=== PATIENT | male | born 1925 | race Caucasian/White ===

== ENCOUNTER 2016-06-04 14:50 | Outpatient (CLI) | payer MEDICARE, BC | END 2016-06-04 14:51 | disposition home or self-care (01) | DX: Z51.5 Encounter for palliative care (principal); J84.10 Pulmonary fibrosis, unspecified; F42.9 Obsessive-compulsive disorder, unspecified; D64.9 Anemia, unspecified; D47.2 Monoclonal gammopathy; I48.91 Unspecified atrial fibrillation; G47.00 Insomnia, unspecified; R06.00 Dyspnea, unspecified; K59.00 Constipation, unspecified; S50.11XA Contusion of right forearm, initial encounter; F41.9 Anxiety disorder, unspecified ==

== ENCOUNTER 2016-06-26 07:29 | Outpatient (CLI) | payer MEDICARE, BC ==
[2016-06-26] MEDS ORDERED: oxyCODONE 5 MG TABLET PO PRN (13:47)
[2016-06-26] MEDS ORDERED: SODIUM CHLORIDE FLUSH 0.9% 10 ML SYRINGE IVP PRN (13:47)
[2016-06-26] MEDS ORDERED: ONDANSETRON ODT 4 MG TABLET TL PRN (13:47)
[2016-06-26] MEDS ORDERED: HYDROmorphone 1 MG/ML SYRINGE IVP PRN (13:47)
[2016-06-26] MEDS ORDERED: ACETAMINOPHEN 325 MG TABLET PO PRN (13:47)
[2016-06-26] MEDS ORDERED: SODIUM CHLORIDE 0.9% 1,000 ML IV SCH (14:00)
[2016-06-26] MEDS ORDERED: SODIUM CHLORIDE FLUSH 0.9% 10 ML SYRINGE IVP SCH (14:00)
[2016-06-26] MEDS ORDERED: diazePAM INJ 5 MG/ML SYRINGE IVP PRN (14:06)
[2016-06-26] MEDS ORDERED: FAMOTIDINE 20 MG TABLET PO SCH (21:00)
[2016-06-27] MEDS ORDERED: ENOXAPARIN 40 MG/0.4 ML SYRINGE SUBQ SCH (09:00)
[2016-06-27] MEDS ORDERED: POLYETHYLENE GLYCOL 3350 17 GM PACKET PO SCH (09:00)
== END 2016-06-26 07:30 | disposition critical access hospital (66) ==
DX: M54.5 Low back pain (principal); W10.8XXA Fall (on) (from) other stairs and steps, initial encounter; Y92.018 Other place in single-family (private) house as the place of occurrence of the external cause
CPT/HCPCS: A0425; A0427

== ENCOUNTER 2016-06-26 07:55 | Inpatient (IN) | payer MEDICARE, BC ==
[2016-06-26] MEDS ORDERED: MORPHINE 2 MG/ML SYRINGE IVP STA ×2 (08:29→10:55)
[2016-06-26] MEDS ORDERED: SODIUM CHLORIDE 0.9% 1,000 ML IV ONE (08:30)
[2016-06-26] MEDS ORDERED: MORPHINE 10 MG/ML VIAL ONE (08:32)
[2016-06-26] MEDS ORDERED: MORPHINE 2 MG/ML SYRINGE ONE (11:04)
[2016-06-26] MEDS ORDERED: ALBUTEROL NEB 2.5 MG/3 ML INH STA (11:41)
[2016-06-26] MEDS ORDERED: diazePAM INJ 5 MG/ML SYRINGE IVP STA (12:54)
[2016-06-26] MEDS ORDERED: diazePAM INJ 5 MG/ML SYRINGE ONE (12:54)
[2016-06-26] MEDS ORDERED: ACETAMINOPHEN 1,000 MG/100 ML 100 ML IV STA (12:54)
[2016-06-26] MEDS ORDERED: KETOROLAC 15 MG/ML VIAL IVP STA (12:54)
[2016-06-26] MEDS ORDERED: KETOROLAC 30 MG/ML VIAL ONE (13:01)
[2016-06-26] MEDS ORDERED: ACETAMINOPHEN 1,000 MG/100 ML 100 ML IV ONE (13:02)
[2016-06-26] MEDS ORDERED: oxyCODONE 5 MG TABLET PO PRN (14:12)
[2016-06-26] MEDS ORDERED: ONDANSETRON ODT 4 MG TABLET TL PRN ×2 (14:12→15:19)
[2016-06-26] MEDS ORDERED: HYDROmorphone 1 MG/ML SYRINGE IVP PRN (14:12)
[2016-06-26] MEDS ORDERED: SODIUM CHLORIDE FLUSH 0.9% 10 ML SYRINGE IVP PRN (14:12)
[2016-06-26] MEDS ORDERED: ACETAMINOPHEN 325 MG TABLET PO PRN ×2 (14:12→15:19)
[2016-06-26] MEDS ORDERED: SODIUM CHLORIDE 0.9% 1,000 ML IV SCH (15:00)
[2016-06-26] MEDS ORDERED: ALBUTEROL NEB 2.5 MG/3 ML INH PRN (15:36)
[2016-06-26] MEDS ORDERED: MORPHINE SOL 10 MG/0.5 ML SYRINGE PO PRN (15:36)
[2016-06-26] MEDS: SODIUM CHLORIDE 0.9% 1,000 ML IV SCH (16:56)
[2016-06-26] MEDS: SODIUM CHLORIDE FLUSH 0.9% 10 ML SYRINGE IVP PRN ×2 (16:57→22:45)
[2016-06-26] MEDS: oxyCODONE 5 MG TABLET PO PRN (20:23)
[2016-06-26] MEDS: MIRTAZAPINE 15 MG TABLET PO SCH (20:24)
[2016-06-26] MEDS: TAMSULOSIN 0.4 MG CAPSULE PO SCH (20:25)
[2016-06-26] MEDS ORDERED: SODIUM CHLORIDE FLUSH 0.9% 10 ML SYRINGE IVP SCH (22:00)
[2016-06-26] MEDS: HYDROmorphone 1 MG/ML SYRINGE IVP PRN (22:44)
[2016-06-26] MEDS: SODIUM CHLORIDE FLUSH 0.9% 10 ML SYRINGE IVP SCH (22:45)
[2016-06-27] MEDS: oxyCODONE 5 MG TABLET PO PRN (00:03)
[2016-06-27] MEDS: HYDROmorphone 1 MG/ML SYRINGE IVP PRN ×2 (01:50→04:53)
[2016-06-27] MEDS: SODIUM CHLORIDE 0.9% 1,000 ML IV SCH ×2 (01:56→11:45)
[2016-06-27] MEDS: SODIUM CHLORIDE FLUSH 0.9% 10 ML SYRINGE IVP SCH ×3 (05:58→20:57)
[2016-06-27] MEDS ORDERED: IPRATROPIUM/ALBUTEROL 3 ML NEB INH PRN (08:43)
[2016-06-27] MEDS ORDERED: ENOXAPARIN 40 MG/0.4 ML SYRINGE SUBQ SCH (09:00)
[2016-06-27] MEDS ORDERED: FAMOTIDINE 20 MG TABLET PO SCH (09:00)
[2016-06-27] MEDS ORDERED: POLYETHYLENE GLYCOL 3350 17 GM PACKET PO SCH (09:00)
[2016-06-27] MEDS: ENOXAPARIN 40 MG/0.4 ML SYRINGE SUBQ SCH (09:10)
[2016-06-27] MEDS: ASPIRIN CHEW 81 MG TABLET PO SCH (11:04)
[2016-06-27] MEDS: MULTIVITAMIN W/MINERALS TABLET PO SCH (11:04)
[2016-06-27] MEDS: CALCIUM CARBONATE CHEW 500 MG TABLET PO SCH (11:05)
[2016-06-27] MEDS: CHOLECALCIFEROL 400 UNIT TABLET PO SCH (11:05)
[2016-06-27] MEDS: CYANOCOBALAMIN 500 MCG TABLET PO SCH (11:05)
[2016-06-27] MEDS: FAMOTIDINE 20 MG TABLET PO SCH (11:05)
[2016-06-27] MEDS: DIGOXIN 125 MCG TABLET PO SCH (11:05)
[2016-06-27] MEDS: POLYETHYLENE GLYCOL 3350 17 GM PACKET PO SCH (11:06)
[2016-06-27] MEDS: FOLIC ACID 1 MG TABLET PO SCH (11:06)
[2016-06-27] MEDS: METOPROLOL SUCCINATE 25 MG TABLET PO SCH (11:06)
[2016-06-27] MEDS: KETOROLAC 15 MG/ML VIAL IVP PRN ×2 (11:45→18:21)
[2016-06-27] MEDS: diazePAM INJ 5 MG/ML SYRINGE IVP PRN (16:03)
[2016-06-27] MEDS: TAMSULOSIN 0.4 MG CAPSULE PO SCH (20:56)
[2016-06-27] MEDS: MIRTAZAPINE 15 MG TABLET PO SCH (20:57)
[2016-06-28] MEDS: SODIUM CHLORIDE 0.9% 1,000 ML IV SCH ×3 (01:36→22:39)
[2016-06-28] MEDS: KETOROLAC 15 MG/ML VIAL IVP PRN ×3 (01:36→20:32)
[2016-06-28] MEDS ORDERED: HALOPERIDOL 5 MG/ML VIAL IVP SCH (01:55)
[2016-06-28] MEDS: SODIUM CHLORIDE FLUSH 0.9% 10 ML SYRINGE IVP SCH ×3 (05:27→20:38)
[2016-06-28] MEDS: FOLIC ACID 1 MG TABLET PO SCH (08:29)
[2016-06-28] MEDS: DIGOXIN 125 MCG TABLET PO SCH (08:30)
[2016-06-28] MEDS: FAMOTIDINE 20 MG TABLET PO SCH (08:30)
[2016-06-28] MEDS: MULTIVITAMIN W/MINERALS TABLET PO SCH (08:30)
[2016-06-28] MEDS: CYANOCOBALAMIN 500 MCG TABLET PO SCH (08:30)
[2016-06-28] MEDS: METOPROLOL SUCCINATE 25 MG TABLET PO SCH (08:30)
[2016-06-28] MEDS: CALCIUM CARBONATE CHEW 500 MG TABLET PO SCH (08:31)
[2016-06-28] MEDS: ASPIRIN CHEW 81 MG TABLET PO SCH (08:32)
[2016-06-28] MEDS: POLYETHYLENE GLYCOL 3350 17 GM PACKET PO SCH (08:32)
[2016-06-28] MEDS: CHOLECALCIFEROL 400 UNIT TABLET PO SCH (08:32)
[2016-06-28] MEDS: ENOXAPARIN 40 MG/0.4 ML SYRINGE SUBQ SCH (08:33)
[2016-06-28] MEDS: diazePAM INJ 5 MG/ML SYRINGE IVP PRN (10:07)
[2016-06-28] MEDS ORDERED: traMADol 50 MG TABLET PO PRN (10:42)
[2016-06-28] MEDS ORDERED: SODIUM CHLORIDE 0.9% 500 ML IV ONE (11:15)
[2016-06-28] MEDS ORDERED: CARBOXYMETHYLCELLULOSE OPHTH DROPS EACHEYE PRN (15:16)
[2016-06-28] MEDS: TAMSULOSIN 0.4 MG CAPSULE PO SCH (20:33)
[2016-06-28] MEDS: MIRTAZAPINE 15 MG TABLET PO SCH (20:34)
[2016-06-28] MEDS: diazePAM 5 MG TABLET PO PRN (22:37)
[2016-06-29] MEDS: SODIUM CHLORIDE FLUSH 0.9% 10 ML SYRINGE IVP SCH ×3 (05:55→22:35)
[2016-06-29] MEDS: SODIUM CHLORIDE 0.9% 1,000 ML IV SCH (05:58)
[2016-06-29] MEDS: diazePAM 5 MG TABLET PO PRN ×2 (08:25→14:03)
[2016-06-29] MEDS ORDERED: SODIUM CHLORIDE 0.9% 1,000 ML IV ONE (09:00)
[2016-06-29] MEDS ORDERED: SENNA 8.6 MG TABLET PO SCH (09:00)
[2016-06-29] MEDS ORDERED: DOCUSATE SODIUM 250 MG CAPSULE PO SCH (09:00)
[2016-06-29] MEDS ORDERED: SODIUM CHLORIDE 0.9% 500 ML IV ONE ×2 (10:39→15:29)
[2016-06-29] MEDS: POLYETHYLENE GLYCOL 3350 17 GM PACKET PO SCH (11:13)
[2016-06-29] MEDS: DIGOXIN 125 MCG TABLET PO SCH (11:13)
[2016-06-29] MEDS: MULTIVITAMIN W/MINERALS TABLET PO SCH (11:14)
[2016-06-29] MEDS: CHOLECALCIFEROL 400 UNIT TABLET PO SCH (11:14)
[2016-06-29] MEDS: METOPROLOL SUCCINATE 25 MG TABLET PO SCH (11:15)
[2016-06-29] MEDS: FAMOTIDINE 20 MG TABLET PO SCH (11:15)
[2016-06-29] MEDS: FOLIC ACID 1 MG TABLET PO SCH (11:15)
[2016-06-29] MEDS: ASPIRIN CHEW 81 MG TABLET PO SCH (11:15)
[2016-06-29] MEDS: CYANOCOBALAMIN 500 MCG TABLET PO SCH (11:15)
[2016-06-29] MEDS: ENOXAPARIN 40 MG/0.4 ML SYRINGE SUBQ SCH (11:16)
[2016-06-29] MEDS: CALCIUM CARBONATE CHEW 500 MG TABLET PO SCH (11:16)
[2016-06-29] MEDS ORDERED: FUROSEMIDE 40 MG/4 ML VIAL IVP STA (16:24)
[2016-06-29] MEDS: KETOROLAC 15 MG/ML VIAL IVP PRN (16:39)
[2016-06-29] MEDS ORDERED: HALOPERIDOL 5 MG/ML VIAL IVP ONE (18:13)
[2016-06-29] MEDS ORDERED: HALOPERIDOL 5 MG/ML VIAL IM ONE (18:14)
[2016-06-29] MEDS: MIRTAZAPINE 15 MG TABLET PO SCH (22:34)
[2016-06-29] MEDS: TAMSULOSIN 0.4 MG CAPSULE PO SCH (22:34)
[2016-06-30] MEDS: KETOROLAC 15 MG/ML VIAL IVP PRN ×2 (01:55→16:32)
[2016-06-30] MEDS: SODIUM CHLORIDE FLUSH 0.9% 10 ML SYRINGE IVP PRN ×2 (01:55→16:33)
[2016-06-30] MEDS: SODIUM CHLORIDE FLUSH 0.9% 10 ML SYRINGE IVP SCH ×3 (06:17→20:11)
[2016-06-30] MEDS: POLYETHYLENE GLYCOL 3350 17 GM PACKET PO SCH (12:08)
[2016-06-30] MEDS: ENOXAPARIN 40 MG/0.4 ML SYRINGE SUBQ SCH (12:08)
[2016-06-30] MEDS: METOPROLOL SUCCINATE 25 MG TABLET PO SCH (12:08)
[2016-06-30] MEDS: ASPIRIN CHEW 81 MG TABLET PO SCH (12:09)
[2016-06-30] MEDS: CYANOCOBALAMIN 500 MCG TABLET PO SCH (12:09)
[2016-06-30] MEDS: MULTIVITAMIN W/MINERALS TABLET PO SCH (12:09)
[2016-06-30] MEDS: FOLIC ACID 1 MG TABLET PO SCH (12:10)
[2016-06-30] MEDS: CALCIUM CARBONATE CHEW 500 MG TABLET PO SCH (12:10)
[2016-06-30] MEDS: FAMOTIDINE 20 MG TABLET PO SCH (12:10)
[2016-06-30] MEDS: CHOLECALCIFEROL 400 UNIT TABLET PO SCH (12:10)
[2016-06-30] MEDS: DIGOXIN 125 MCG TABLET PO SCH (12:12)
[2016-06-30] MEDS ORDERED: SENNA 8.6 MG TABLET PO ONE (13:30)
[2016-06-30] MEDS: HALOPERIDOL 1 MG TABLET PO SCH (16:32)
[2016-06-30] MEDS: TAMSULOSIN 0.4 MG CAPSULE PO SCH (20:11)
[2016-06-30] MEDS: MIRTAZAPINE 15 MG TABLET PO SCH (20:11)
[2016-07-01] MEDS: SODIUM CHLORIDE FLUSH 0.9% 10 ML SYRINGE IVP SCH ×2 (06:15→14:08)
[2016-07-01] MEDS: MULTIVITAMIN W/MINERALS TABLET PO SCH (08:48)
[2016-07-01] MEDS: ASPIRIN CHEW 81 MG TABLET PO SCH (08:49)
[2016-07-01] MEDS: FOLIC ACID 1 MG TABLET PO SCH (08:49)
[2016-07-01] MEDS: METOPROLOL SUCCINATE 25 MG TABLET PO SCH (08:49)
[2016-07-01] MEDS: CHOLECALCIFEROL 400 UNIT TABLET PO SCH (08:50)
[2016-07-01] MEDS: CYANOCOBALAMIN 500 MCG TABLET PO SCH (08:50)
[2016-07-01] MEDS: FAMOTIDINE 20 MG TABLET PO SCH (08:50)
[2016-07-01] MEDS: ENOXAPARIN 40 MG/0.4 ML SYRINGE SUBQ SCH (08:50)
[2016-07-01] MEDS: POLYETHYLENE GLYCOL 3350 17 GM PACKET PO SCH (08:51)
[2016-07-01] MEDS: CALCIUM CARBONATE CHEW 500 MG TABLET PO SCH (08:51)
[2016-07-01] MEDS: DIGOXIN 125 MCG TABLET PO SCH (08:53)
[2016-07-01] MEDS: HALOPERIDOL 1 MG TABLET PO SCH (09:01)
[2016-07-01] MEDS: diazePAM 5 MG TABLET PO PRN (10:23)
[2016-07-01] MEDS: oxyCODONE 5 MG TABLET PO PRN (13:43)
[2016-07-01] MEDS: KETOROLAC 15 MG/ML VIAL IVP PRN (13:45)
== END 2016-07-01 16:25 | DRG 197 ==
DX: J84.10 Pulmonary fibrosis, unspecified (principal); S50.812A Abrasion of left forearm, initial encounter; S32.031A Stable burst fracture of third lumbar vertebra, initial encounter for closed fracture; F05 Delirium due to known physiological condition; I48.91 Unspecified atrial fibrillation; I10 Essential (primary) hypertension; N17.9 Acute kidney failure, unspecified; R09.02 Hypoxemia; T79.6XXA Traumatic ischemia of muscle, initial encounter; S50.819A Abrasion of unspecified forearm, initial encounter; W10.9XXA Fall (on) (from) unspecified stairs and steps, initial encounter; Y92.009 Unspecified place in unspecified non-institutional (private) residence as the place of occurrence of the external cause; I48.2 Chronic atrial fibrillation; I11.9 Hypertensive heart disease without heart failure; F32.9 Major depressive disorder, single episode, unspecified; F42.9 Obsessive-compulsive disorder, unspecified; N40.1 Benign prostatic hyperplasia with lower urinary tract symptoms; R33.8 Other retention of urine; M47.9 Spondylosis, unspecified; R13.10 Dysphagia, unspecified; Z66 Do not resuscitate; Z78.1 Physical restraint status; Z86.73 Personal history of transient ischemic attack (TIA), and cerebral infarction without residual deficits; Z87.01 Personal history of pneumonia (recurrent); Z91.81 History of falling; Z79.82 Long term (current) use of aspirin; Z87.891 Personal history of nicotine dependence

== ENCOUNTER 2016-07-02 13:15 | Outpatient (CLI) | payer MEDICARE, BC | END 2016-07-02 13:16 | disposition home or self-care (01) | DX: Z51.5 Encounter for palliative care (principal); E87.70 Fluid overload, unspecified; J84.10 Pulmonary fibrosis, unspecified; K59.00 Constipation, unspecified; S32.031D Stable burst fracture of third lumbar vertebra, subsequent encounter for fracture with routine healing; R11.2 Nausea with vomiting, unspecified; R41.0 Disorientation, unspecified; F42.9 Obsessive-compulsive disorder, unspecified; R60.0 Localized edema; Z79.82 Long term (current) use of aspirin; Z79.891 Long term (current) use of opiate analgesic; Z99.81 Dependence on supplemental oxygen; H91.90 Unspecified hearing loss, unspecified ear; R45.1 Restlessness and agitation; D53.9 Nutritional anemia, unspecified; F41.9 Anxiety disorder, unspecified; Z66 Do not resuscitate ==

== ENCOUNTER 2016-07-06 09:30 | Outpatient (CLI) | payer MEDICARE, BC | END 2016-07-06 09:31 | disposition home or self-care (01) | DX: Z51.5 Encounter for palliative care (principal); J69.0 Pneumonitis due to inhalation of food and vomit; B37.0 Candidal stomatitis; E87.70 Fluid overload, unspecified; S32.031D Stable burst fracture of third lumbar vertebra, subsequent encounter for fracture with routine healing; R50.9 Fever, unspecified; Z91.81 History of falling; R41.89 Other symptoms and signs involving cognitive functions and awareness; R09.81 Nasal congestion; Z66 Do not resuscitate; R05 Cough; F42.9 Obsessive-compulsive disorder, unspecified; D64.9 Anemia, unspecified; D47.2 Monoclonal gammopathy; Z79.891 Long term (current) use of opiate analgesic ==

== ENCOUNTER 2016-07-07 07:35 | Outpatient (CLI) | payer BC, MEDICARE, OTHER | END 2016-07-07 07:36 | disposition home or self-care (01) | DX: J18.9 Pneumonia, unspecified organism (principal) ==

== ENCOUNTER 2016-07-08 09:45 | Outpatient (CLI) | payer MEDICARE, BC | END 2016-07-08 09:46 | disposition home or self-care (01) | DX: Z51.5 Encounter for palliative care (principal); J69.0 Pneumonitis due to inhalation of food and vomit; B37.0 Candidal stomatitis; E87.70 Fluid overload, unspecified; S32.031D Stable burst fracture of third lumbar vertebra, subsequent encounter for fracture with routine healing; R45.1 Restlessness and agitation; R05 Cough; Z99.81 Dependence on supplemental oxygen; Z79.891 Long term (current) use of opiate analgesic; F42.9 Obsessive-compulsive disorder, unspecified; Z91.81 History of falling; Z66 Do not resuscitate; F03.90 Unspecified dementia, unspecified severity, without behavioral disturbance, psychotic disturbance, mood disturbance, and anxiety; R73.9 Hyperglycemia, unspecified; D64.9 Anemia, unspecified; D47.2 Monoclonal gammopathy ==

== ENCOUNTER 2016-07-12 19:35 | Outpatient (CLI) | payer MEDICARE, BC | END 2016-07-12 19:36 | disposition critical access hospital (66) | LOC: EMS 19:35 | PROVIDERS: ATTEND Surgery | DX: M54.9 Dorsalgia, unspecified (principal); W19.XXXA Unspecified fall, initial encounter | CPT/HCPCS: A0425; A0429 ==

== ENCOUNTER 2016-07-12 19:39 | Inpatient (IN) | payer MEDICARE, BC ==
[2016-07-12] MEDS ORDERED: PIPERACILLIN/TAZOBACTAM 4.5 GM in SODIUM CHLORIDE 0.9% MINIBAG 100 ML IV STA (21:28)
[2016-07-12] MEDS ORDERED: VANCOMYCIN INJ 1 GM in SODIUM CHLORIDE 0.9% 250 ML IV STA (21:28)
[2016-07-12] MEDS ORDERED: VANCOMYCIN 1 GM VIAL ONE (22:24)
[2016-07-12] MEDS ORDERED: ACETAMINOPHEN 325 MG TABLET PO PRN (23:20)
[2016-07-12] MEDS ORDERED: ONDANSETRON 4 MG/2 ML VIAL IVP PRN (23:20)
[2016-07-12] MEDS ORDERED: PROCHLORPERAZINE 10 MG/2 ML VIAL IVP PRN (23:20)
[2016-07-12] MEDS ORDERED: SODIUM CHLORIDE 0.9% 1,000 ML IV SCH (23:45)
[2016-07-12] MEDS ORDERED: VANCOMYCIN PER PHARMACY 1 GM in SODIUM CHLORIDE 0.9% 250 ML IV SCH (23:45)
[2016-07-13] MEDS: SODIUM CHLORIDE FLUSH 0.9% 10 ML SYRINGE IVP PRN ×6 (00:35→21:57)
[2016-07-13] MEDS: MORPHINE 2 MG/ML SYRINGE IVP PRN ×2 (00:35→04:07)
[2016-07-13] MEDS: ACETAMINOPHEN 1,000 MG/100 ML 100 ML IV PRN ×2 (00:43→19:56)
[2016-07-13] MEDS: AZITHROMYCIN INJ 500 MG in SODIUM CHLORIDE 0.9% 250 ML IV SCH (01:50)
[2016-07-13] MEDS: PIPERACILLIN/TAZOBACTAM 4.5 GM in SODIUM CHLORIDE 0.9% MINIBAG 100 ML IV SCH ×4 (04:08→21:57)
[2016-07-13] MEDS: FUROSEMIDE 40 MG/4 ML VIAL IVP SCH ×2 (06:56→14:26)
[2016-07-13] MEDS: PANTOPRAZOLE 40 MG VIAL IVP SCH (06:56)
[2016-07-13] MEDS: SODIUM CHLORIDE FLUSH 0.9% 10 ML SYRINGE IVP SCH ×3 (06:57→16:13)
[2016-07-13] MEDS ORDERED: PANTOPRAZOLE 40 MG TABLET PO SCH (07:00)
[2016-07-13] MEDS ORDERED: FUROSEMIDE 20 MG TABLET PO SCH (09:00)
[2016-07-13] MEDS: IPRATROPIUM/ALBUTEROL 3 ML NEB INH PRN ×2 (09:05→13:35)
[2016-07-13] MEDS: DIGOXIN 125 MCG TABLET PO SCH (09:07)
[2016-07-13] MEDS: SACCHAROMYCES BOULARDII 250 MG CAPSULE PO SCH ×2 (09:07→17:18)
[2016-07-13] MEDS: ASPIRIN EC 81 MG TABLET PO SCH (09:07)
[2016-07-13] MEDS: HALOPERIDOL 1 MG TABLET PO SCH ×2 (09:08→17:18)
[2016-07-13] MEDS: ENOXAPARIN 40 MG/0.4 ML SYRINGE SUBQ SCH (09:08)
[2016-07-13] MEDS: POLYETHYLENE GLYCOL 3350 17 GM PACKET PO SCH (09:09)
[2016-07-13] MEDS: CYCLOBENZAPRINE 10 MG TABLET PO PRN ×2 (09:10→17:18)
[2016-07-13] MEDS: TAMSULOSIN 0.4 MG CAPSULE PO SCH (09:10)
[2016-07-13] MEDS: METOPROLOL SUCCINATE 25 MG TABLET PO SCH (09:15)
[2016-07-13] MEDS: MORPHINE SOL 10 MG/0.5 ML SYRINGE PO PRN ×2 (12:21→18:16)
[2016-07-13] MEDS: diazePAM 5 MG TABLET PO PRN (14:27)
[2016-07-13] MEDS: MIRTAZAPINE 15 MG TABLET PO SCH (21:57)
[2016-07-14] MEDS: MORPHINE SOL 10 MG/0.5 ML SYRINGE PO PRN ×6 (01:03→21:42)
[2016-07-14] MEDS: AZITHROMYCIN INJ 500 MG in SODIUM CHLORIDE 0.9% 250 ML IV SCH (01:04)
[2016-07-14] MEDS: SODIUM CHLORIDE FLUSH 0.9% 10 ML SYRINGE IVP PRN ×3 (01:04→06:44)
[2016-07-14] MEDS: PIPERACILLIN/TAZOBACTAM 4.5 GM in SODIUM CHLORIDE 0.9% MINIBAG 100 ML IV SCH ×4 (04:25→21:44)
[2016-07-14] MEDS: FUROSEMIDE 40 MG/4 ML VIAL IVP SCH ×2 (06:43→14:34)
[2016-07-14] MEDS: PANTOPRAZOLE 40 MG VIAL IVP SCH (06:43)
[2016-07-14] MEDS: SODIUM CHLORIDE FLUSH 0.9% 10 ML SYRINGE IVP SCH ×3 (06:44→21:45)
[2016-07-14] MEDS: SACCHAROMYCES BOULARDII 250 MG CAPSULE PO SCH ×2 (10:37→17:15)
[2016-07-14] MEDS: ASPIRIN EC 81 MG TABLET PO SCH (10:38)
[2016-07-14] MEDS: TAMSULOSIN 0.4 MG CAPSULE PO SCH (10:38)
[2016-07-14] MEDS: DIGOXIN 125 MCG TABLET PO SCH (10:38)
[2016-07-14] MEDS: HALOPERIDOL 1 MG TABLET PO SCH ×2 (10:38→17:07)
[2016-07-14] MEDS: METOPROLOL SUCCINATE 25 MG TABLET PO SCH (10:38)
[2016-07-14] MEDS: ENOXAPARIN 40 MG/0.4 ML SYRINGE SUBQ SCH (10:39)
[2016-07-14] MEDS: POLYETHYLENE GLYCOL 3350 17 GM PACKET PO SCH (10:39)
[2016-07-14] MEDS: MIRTAZAPINE 15 MG TABLET PO SCH (21:44)
[2016-07-15] MEDS: MORPHINE SOL 10 MG/0.5 ML SYRINGE PO PRN ×4 (01:10→19:23)
[2016-07-15] MEDS: AZITHROMYCIN INJ 500 MG in SODIUM CHLORIDE 0.9% 250 ML IV SCH (01:14)
[2016-07-15] MEDS: SODIUM CHLORIDE FLUSH 0.9% 10 ML SYRINGE IVP PRN ×4 (01:18→06:30)
[2016-07-15] MEDS: PIPERACILLIN/TAZOBACTAM 4.5 GM in SODIUM CHLORIDE 0.9% MINIBAG 100 ML IV SCH ×4 (04:17→21:15)
[2016-07-15] MEDS: SODIUM CHLORIDE FLUSH 0.9% 10 ML SYRINGE IVP SCH ×3 (05:31→21:16)
[2016-07-15] MEDS: PANTOPRAZOLE 40 MG VIAL IVP SCH (06:30)
[2016-07-15] MEDS: FUROSEMIDE 40 MG/4 ML VIAL IVP SCH ×2 (06:30→14:54)
[2016-07-15] MEDS: MORPHINE 2 MG/ML SYRINGE IVP PRN ×3 (08:11→21:04)
[2016-07-15] MEDS: ENOXAPARIN 40 MG/0.4 ML SYRINGE SUBQ SCH (10:48)
[2016-07-15] MEDS: SACCHAROMYCES BOULARDII 250 MG CAPSULE PO SCH ×2 (10:48→17:22)
[2016-07-15] MEDS: ASPIRIN EC 81 MG TABLET PO SCH (10:48)
[2016-07-15] MEDS: METOPROLOL SUCCINATE 25 MG TABLET PO SCH (10:48)
[2016-07-15] MEDS: HALOPERIDOL 1 MG TABLET PO SCH ×2 (10:48→17:24)
[2016-07-15] MEDS: TAMSULOSIN 0.4 MG CAPSULE PO SCH (10:48)
[2016-07-15] MEDS: DIGOXIN 125 MCG TABLET PO SCH (10:48)
[2016-07-15] MEDS: POLYETHYLENE GLYCOL 3350 17 GM PACKET PO SCH (10:49)
[2016-07-15] MEDS: diazePAM 5 MG TABLET PO PRN (11:11)
[2016-07-15] MEDS ORDERED: LACTULOSE 10 GM /15 ML UDC PO ONE (11:30)
[2016-07-15] MEDS: MIRTAZAPINE 15 MG TABLET PO SCH (21:15)
[2016-07-16] MEDS: AZITHROMYCIN INJ 500 MG in SODIUM CHLORIDE 0.9% 250 ML IV SCH (00:52)
[2016-07-16] MEDS: PIPERACILLIN/TAZOBACTAM 4.5 GM in SODIUM CHLORIDE 0.9% MINIBAG 100 ML IV SCH ×4 (03:42→22:21)
[2016-07-16] MEDS: FUROSEMIDE 40 MG/4 ML VIAL IVP SCH ×2 (06:45→13:49)
[2016-07-16] MEDS: PANTOPRAZOLE 40 MG VIAL IVP SCH (06:45)
[2016-07-16] MEDS: SODIUM CHLORIDE FLUSH 0.9% 10 ML SYRINGE IVP SCH ×3 (06:45→22:21)
[2016-07-16] MEDS: IPRATROPIUM/ALBUTEROL 3 ML NEB INH PRN ×3 (08:00→15:26)
[2016-07-16] MEDS: ASPIRIN EC 81 MG TABLET PO SCH (08:30)
[2016-07-16] MEDS: METOPROLOL SUCCINATE 25 MG TABLET PO SCH (08:30)
[2016-07-16] MEDS: SACCHAROMYCES BOULARDII 250 MG CAPSULE PO SCH ×2 (08:30→17:00)
[2016-07-16] MEDS: DIGOXIN 125 MCG TABLET PO SCH (08:30)
[2016-07-16] MEDS: TAMSULOSIN 0.4 MG CAPSULE PO SCH (08:31)
[2016-07-16] MEDS: ENOXAPARIN 40 MG/0.4 ML SYRINGE SUBQ SCH (08:31)
[2016-07-16] MEDS: HALOPERIDOL 1 MG TABLET PO SCH ×2 (08:31→18:52)
[2016-07-16] MEDS: POLYETHYLENE GLYCOL 3350 17 GM PACKET PO SCH (08:31)
[2016-07-16] MEDS: SODIUM CHLORIDE FLUSH 0.9% 10 ML SYRINGE IVP PRN (09:27)
[2016-07-16] MEDS: CYCLOBENZAPRINE 10 MG TABLET PO PRN (18:52)
[2016-07-16] MEDS: MORPHINE SOL 10 MG/0.5 ML SYRINGE PO PRN (20:12)
[2016-07-16] MEDS: MIRTAZAPINE 15 MG TABLET PO SCH (20:12)
[2016-07-17] MEDS: AZITHROMYCIN INJ 500 MG in SODIUM CHLORIDE 0.9% 250 ML IV SCH (00:58)
[2016-07-17] MEDS: PIPERACILLIN/TAZOBACTAM 4.5 GM in SODIUM CHLORIDE 0.9% MINIBAG 100 ML IV SCH ×2 (04:21→09:33)
[2016-07-17] MEDS: SODIUM CHLORIDE FLUSH 0.9% 10 ML SYRINGE IVP SCH (06:25)
[2016-07-17] MEDS: FUROSEMIDE 40 MG/4 ML VIAL IVP SCH (06:25)
[2016-07-17] MEDS: SODIUM CHLORIDE FLUSH 0.9% 10 ML SYRINGE IVP PRN ×2 (06:25→09:33)
[2016-07-17] MEDS: PANTOPRAZOLE 40 MG VIAL IVP SCH (06:25)
[2016-07-17] MEDS: IPRATROPIUM/ALBUTEROL 3 ML NEB INH PRN (07:05)
[2016-07-17] MEDS: SACCHAROMYCES BOULARDII 250 MG CAPSULE PO SCH (08:19)
[2016-07-17] MEDS: POLYETHYLENE GLYCOL 3350 17 GM PACKET PO SCH (08:20)
[2016-07-17] MEDS: HALOPERIDOL 1 MG TABLET PO SCH (08:20)
[2016-07-17] MEDS: ENOXAPARIN 40 MG/0.4 ML SYRINGE SUBQ SCH (08:20)
[2016-07-17] MEDS: METOPROLOL SUCCINATE 25 MG TABLET PO SCH (08:20)
[2016-07-17] MEDS: TAMSULOSIN 0.4 MG CAPSULE PO SCH (08:20)
[2016-07-17] MEDS: ASPIRIN EC 81 MG TABLET PO SCH (08:20)
[2016-07-17] MEDS: DIGOXIN 125 MCG TABLET PO SCH (08:20)
[2016-07-17] MEDS ORDERED: POTASSIUM CHLORIDE 10 MEQ CAPSULE PO SCH (08:30)
[2016-07-17] MEDS: CYCLOBENZAPRINE 10 MG TABLET PO PRN (10:09)
[2016-07-18] MEDS ORDERED: POTASSIUM CHLORIDE 10 MEQ CAPSULE PO SCH (08:00)
== END 2016-07-17 11:08 | disposition home or self-care (01) | DRG 177 ==
DX: J69.0 Pneumonitis due to inhalation of food and vomit (principal); J18.9 Pneumonia, unspecified organism; S20.412A Abrasion of left back wall of thorax, initial encounter; W19.XXXA Unspecified fall, initial encounter; G93.40 Encephalopathy, unspecified; Y92.009 Unspecified place in unspecified non-institutional (private) residence as the place of occurrence of the external cause; F05 Delirium due to known physiological condition; J84.10 Pulmonary fibrosis, unspecified; I10 Essential (primary) hypertension; I48.91 Unspecified atrial fibrillation; G89.21 Chronic pain due to trauma; S32.031D Stable burst fracture of third lumbar vertebra, subsequent encounter for fracture with routine healing; N40.1 Benign prostatic hyperplasia with lower urinary tract symptoms; R39.15 Urgency of urination; R33.8 Other retention of urine; F42.9 Obsessive-compulsive disorder, unspecified; F03.90 Unspecified dementia, unspecified severity, without behavioral disturbance, psychotic disturbance, mood disturbance, and anxiety; K59.00 Constipation, unspecified; R63.0 Anorexia; D53.9 Nutritional anemia, unspecified; D47.2 Monoclonal gammopathy; Y95 Nosocomial condition; Z66 Do not resuscitate; Z51.5 Encounter for palliative care; Z99.81 Dependence on supplemental oxygen; Z86.73 Personal history of transient ischemic attack (TIA), and cerebral infarction without residual deficits; Z87.01 Personal history of pneumonia (recurrent); Z87.891 Personal history of nicotine dependence; Z79.82 Long term (current) use of aspirin; Z91.81 History of falling; Z74.01 Bed confinement status

== ENCOUNTER 2016-07-17 11:10 | Outpatient (CLI) | payer MEDICARE, BC | END 2016-07-17 11:11 | disposition hospice, home (50) | LOC: EMS 11:10 | PROVIDERS: ATTEND Surgery | DX: J18.9 Pneumonia, unspecified organism (principal); Z74.01 Bed confinement status; Z99.81 Dependence on supplemental oxygen | CPT/HCPCS: A0425; A0429 ==